=== PATIENT | male | born 2000 | race Caucasian/White ===

== ENCOUNTER 2020-04-13 08:46 | Emergency (ER) | payer OTHER, SELFPAY ==
[2020-04-13 09:31] VITALS: BP 129/88; PULSE 88; RESP 18; TEMP 37.4; O2SAT 96; BMI 23.7
--- NOTE | 2020-04-13 09:42 | XR_ITS ---
EXAMINATION: XR FINGER, RIGHT CLINICAL INFORMATION: Patient unable to straighten finger. The fifth finger injury. COMPARISON: None TECHNIQUE: 3 views of the right fifth. FINDINGS: There is acute severe flexion deformity PIP and mild flexion deformity DIP joint fifth digit without any visible subluxation, fracture. The soft tissues are normal. XR/XR finger RT min 2V IMPRESSION: Excessive deformities of PIP and DIP joints of digits likely spasm. No bony abnormality seen. Especially there is no subluxation visualized
[2020-04-13] MEDS: Lidocaine HCl 1 % MPF 5 ML VIAL SUBCUT (09:57)
--- NOTE | 2020-04-13 10:16 | ED.EXTPRO ---
HPI - Extremity Problem General Chief complaint: Extremity Injury, Upper Stated complaint: laceration rt hand Time Seen by Provider: 04/13/20 09:42 Source: patient Mode of arrival: ambulatory Limitations: no limitations History of Present Illness HPI Narrative: This is otherwise healthy 20-year-old male who denies any significant past medical history presents ambulatory via triage from work where he reports he was moving a Pallet of glass and the pry bar became loosened suddenly moved and scraping like motion car across the dorsum right 5th digit causing laceration. States unable to open his finger since. States he had bleeding but control with dressing. Unsure of his last tetanus vaccination. No other injury. Onset (ago): minute(s) Pain Consistency: constant Location: right (Fifth digit) Quality: aching Radiation: none Relieving factors: immobilization Exacerbating factors: range of motion Associated symptoms: denies other symptoms Related Data Previous Rx's Medication Instructions Recorded amoxicillin-pot clavulanate 1 tab PO Q12H 10 Days #20 tab 04/13/20 [Augmentin] ibuprofen 800 mg PO Q8H PRN #30 tab 04/13/20 Allergies Allergy/AdvReac Type Severity Reaction Status Date / Time No Known Allergies Allergy Verified 04/13/20 09:33 [facility] Past Medical History Medical History (Updated 04/13/20 @ 11:34 by Florentino Menjivar NP) No known health problems Social History Social History Advance Directives: No Advance Directives Information Provided: No Physical Exam Vital Signs: Vital Signs: Last Vital Signs Temp 99.3 F 04/13/20 09:31 Pulse 88 04/13/20 09:31 Resp 18 04/13/20 09:31 BP 129/88 04/13/20 09:31 Pulse Ox 96 04/13/20 09:31 Body Mass Index 23.7 Reviewed Const: General: cooperative and healthy appearing; No acute distress or intoxicated appearing Nutritional Appearance: average body habitus Orientation/consciousness: patient oriented x3 Chest: Chest palpation & inspection: normal inspection of the chest Resp: Effort & Inspection: normal respiratory effort Auscultation: clear to auscultation bilaterally Cardio: Jugular venous distension: no JVD Rate: regular rate Rhythm: regular rhythm Heart sounds: S1 normal heart sound present and S2 normal heart sound present Skin: General skin exam: no rashes or lesions noted Neuro: General: patient oriented x3 Extrem: Other: In a flexed position. States unable to extend by himself. General: Yes normal to inspection Course Course Course Narrative: Interview 20-year-old with laceration to the proximal 5th digit right hand at work from crowbar resulting in laceration to the extensor tendon, x-rays without bony involvement. Wound extensively cleaned without evidence of foreign body. Case discussed with orthopedics Zoraida who spoke to Dr. Tovar recommendation for loosely suturing and placing and splint in extended position and follow-up on Thursday for evaluation and possible instrumentation in office. Patient was given tetanus vaccination. Again wound was extensive leak clean without evidence of foreign body were empirically placed on antibiotics. Will call office after discharge to confirm his appointment. The importance of follow-up was reviewed with him and he verbalized understanding. Procedures Laceration Laceration 1: Site: hand (Fifth digit) Side (If applicable): right Description: linear and clean Depth: simple, single layer Local Anesthetic: lidocaine 1% Amount of anesthesia used (mL): 4 Skin layer closed with: nylon Size (cm): 4-0 Number of sutures: 2 Technique: simple, interrupted MDM - Extremity (Nontraumatic) Imaging Data Right hand x-ray: Radiologist's impression: [address] [address] XRay Report Signed Patient: Dandre DrewMR#: [id number] : 2000Acct:[id number] Age/Sex: 20 / MADM Date: 04/13/20 Loc: HO.ED Attending Dr: Ordering Physician: Florentino Menjivar NP Date of Service: 04/13/20 Procedure(s): XR finger RT min 2V Accession Number(s): [id number] cc: Florentino Menjivar [employer]OR~ EXAMINATION: XR FINGER, RIGHT CLINICAL INFORMATION: Patient unable to straighten finger. The fifth finger injury. COMPARISON: None TECHNIQUE: 3 views of the right fifth. FINDINGS: There is acute severe flexion deformity PIP and mild flexion deformity DIP joint fifth digit without any visible subluxation, fracture. The soft tissues are normal. XR/XR finger RT min 2V IMPRESSION: Excessive deformities of PIP and DIP joints of digits likely spasm. No bony abnormality seen. Especially there is no subluxation visualized Dictated By:CONSTANTINO FAJARDO MD Signed By:<Electronically signed by CONSTANTINO FAJARDO MD in OV>04/13/20 1008 DD/ 0942 TD/TT: Solutions Developer: MACY Discharge Plan Discharge Clinical Impression: Extensor tendon laceration of finger with open wound Qualifiers: Encounter type: initial encounter Qualified Code(s): S56.429A - Laceration of extensor muscle, fascia and tendon of unspecified finger at forearm level, initial encounter Patient Disposition: Home, Self-Care Instructions: Finger Laceration (ED), Tendon Laceration (ED) Additional Instructions: Today you were evaluated for the laceration to the right 5th finger. The x-ray did not show any evidence of fracture Leave yrs splint on until you follow-up with orthopedic hand surgeon. You have a tendon laceration and this will need repair by the hand surgeon as I have discussed with you. Please follow-up with Dr. Tovar our orthopedic hand surgeon on Thursday or Thursday Ibuprofen for pain or discomfort Take antibiotics to prevent any infection It is very important for you to follow-up with orthopedic hand surgeon otherwise you may have permanent deformity in the finger, increased risk infection and poor healing. Return to emergency room if any concerns or worsening symptoms otherwise follow-up as instructed Thank you Prescriptions: New ibuprofen 800 mg tablet 800 mg PO Q8H PRN (Reason: pain) Qty: 30 RF: 0 amoxicillin-pot clavulanate [Augmentin] 875-125 mg tablet 1 tab PO Q12H 10 Days Qty: 20 RF: 0 Interventions: ED Discharge Assessment Last Done: 04/13/20 11:53 Discharge Date/Time: 04/13/20 11:54
== END 2020-04-13 11:54 | disposition home or self-care (01) ==
PROVIDERS: Emergency Provider Emergency Medicine; PCP Pediatrics
DX: S56.427A Laceration of extensor muscle, fascia and tendon of right little finger at forearm level, initial encounter (principal); W27.8XXA Contact with other nonpowered hand tool, initial encounter; Y93.9 Activity, unspecified; Y92.9 Unspecified place or not applicable; Y99.0 Civilian activity done for income or pay
CPT/HCPCS: 12002; 29130; 73140; 90471; 90715; 99283; 99284

== ENCOUNTER → 2020-04-18 08:42 | Outpatient (BNVA) | payer OTHER, SELFPAY | PROVIDERS: PCP Pediatrics; Visit Provider Orthopaedic Surgery | DX: S56.429A Laceration of extensor muscle, fascia and tendon of unspecified finger at forearm level, initial encounter (principal); S61.209A Unspecified open wound of unspecified finger without damage to nail, initial encounter | CPT/HCPCS: 99202 ==

== ENCOUNTER 2020-04-19 08:08 | Day surgery (SDC) | payer OTHER, SELFPAY ==
[2020-04-18 12:45] VITALS: BMI 23.7
--- NOTE | 2020-04-18 13:45 | P.CONAN_ITS ---
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 Meds Allergies Allergy/AdvReac Type Severity Reaction Status Date / Time No Known Allergies Allergy Verified 04/18/20 08:44 Exam Exam Date and Time: April 18, 2020 1345 Height,Weight and Vital Signs: Height 6 ft 1 in Weight 81.647 kg Assessment and Plan Assessment Anesthesia Assessment: Chart Reviewed Documented by User: Carrol Juarez 04/19/20 12:31 [facility] Past Medical History Medical History No known health problems Social History Social History Smoking Status: Never smoker Second Hand Smoke Exposure: No Use of substances other than those prescribed or required for medical reasons: Yes Substance Use Type: Marijuana Advance Directives: No Advance Directives Information Provided: No Advance Directives on File: No Current occupational status: employed 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
[2020-04-19] VITALS (8 sets, daily range): BP systolic 114–136; BP diastolic 58–94; PULSE 52–67; RESP 16; TEMP 36.1–36.5; O2SAT 97–100
[2020-04-19] MEDS: Lactated Ringers 1,000 ML 100 ML IVCONT (08:41)
[2020-04-19] MEDS: ceFAZolin Sodium/Dextrose,Iso 2 GM/50 ML PIGGYBACK IV (08:41)
--- NOTE | 2020-04-19 10:12 | MHC.SHP ---
Pre-Procedural Eval Section B Chief Complaint: laceration of extensor muscle Allergies: Allergies Allergy/AdvReac Type Severity Reaction Status Date / Time No Known Allergies Allergy Verified 04/18/20 08:44 Plan I have reviewed the history and physical and performed a pertinent physical examination on my patient. No changes have occurred unless specified.
--- NOTE | 2020-04-19 13:44 | W.PM.OPN ---
Operative Note Operative Note Date of Service: 04/19/20 Narrative: Operative Note Narrative: Preop diagnosis: 1. Right small finger laceration with open PIP joint 2. Right small finger extensor tendon laceration 3. Right ulnar nerve block the wrist Postop diagnosis: Same Procedure: Same Surgeon: Liane Tovar MD Anesthesia: Mac plus regional block Findings: Wound extending down to bone on the distal dorsal aspect of the proximal phalanx and also into the PIP joint. The wound was clean with no purulence or gross debris. Was a partial extensor tendon injury involving more than 50% of the central slip and also the ulnar lateral band. Implants: None Tourniquet time: 24 minutes EBL: 5.0 ml Specimen: Drains: None Complications: None Disposition: Brought to the recovery room in stable condition Plan: Follow-up in 10-14 days for wound check, suture removal and placement short-arm finger spica cast with the small and ring fingers about 70-80 degrees of flexion at the MCP joint and extension at the PIP joint until 6 weeks postop. Indications: The patient is a 19 year old man with laceration over dorsal aspect of the right small finger, involving the extensor tendon mechanism . The risks and benefits of operative treatment, including but not limited to risk of damage to blood vessels, nerves, tendons, infection, recurrence, persistent pain or numbness, incomplete resolution of preoperative symptoms, or need for further surgery were discussed with the patient and they wished to proceed with surgery. Procedure: Once consent was obtained patient was brought back to the operating suite and placed in the operating table in a supine position. A regional block was attempted by the anesthesia team, but he was unable to tolerate. Perioperative antibiotics and anesthesia was administered by the anesthesia team. A tourniquet was applied to the proximal aspect of the right upper extremity and the limb was prepped and draped in a standard surgical fashion. The limb was elevated exsanguinated with Esmarch bandage and the tourniquet inflated to 250 mm of mercury for a total tourniquet time of 24 minutes. I 1st performed a right ulnar nerve block by infiltrating about the ulnar nerve with the wrist with some 0.5% plain Marcaine, for postop pain control. The sutures were. He was found to have a crescent-shaped laceration measuring approximately 2 cm over the dorsal distal aspect of the proximal phalanx of his right small finger extending to the ulnar aspect of the PIP joint. This wound was sharply debrided using a 15. Blade and some iris scissors. Was evaluated was found to extend the dorsal ulnar aspect of distal aspect of the proximal phalanx and into the PIP joint. This area was debrided using a small rongeur in a small curette was clean and without purulence or gross debris. The PIP joint and the were copiously irrigated with normal saline. Once satisfied with our debridement I then repaired the extensor mechanism, which involved greater than 50% of the central slip and also the ulnar lateral band. Were repaired some 3-0 Ethibond suture material. I was satisfied with our extensor tendon repair. At this point the tourniquet was deflated and hemostasis obtained with a brief period of local pressure and bipolar electrocautery. The wound was copiously irrigated with normal saline. The skin edges were reapproximated with 5-0 Prolene suture. A sterile dressing and a short-arm splint was applied extending to the tips of the small and ring fingers. The patient appears to have tolerated the procedure well and with no complications. All digits were well vascularized conclusion of the case.
--- NOTE | 2020-04-19 14:47 | HO.POSTANES ---
Post Anesthesia Evaluation Post Anesthesia Evaluation Vital Signs: Vital Signs Temp Pulse Resp BP Pulse Ox 04/19/20 14:19 52 16 117/60 98 04/19/20 14:02 53 16 114/58 L 100 04/19/20 13:57 53 16 117/59 L 100 04/19/20 13:52 54 16 115/64 100 04/19/20 13:47 97.7 F 60 16 120/62 100 Anesthesia: General Mental Status: Awake Pain Control: Satisfactory Nausea/Vomiting: None Hydration: Adequate Anesthesia-Related Issues: No Anes. Related Issues
== END 2020-04-19 16:01 | disposition home or self-care (01) ==
PROVIDERS: PCP Pediatrics; Visit Provider Orthopaedic Surgery
PROC: (CPT 26418; principal; 2020-04-19 10:40)
DX: S66.326A Laceration of extensor muscle, fascia and tendon of right little finger at wrist and hand level, initial encounter (principal); S61.216A Laceration without foreign body of right little finger without damage to nail, initial encounter; W25.XXXA Contact with sharp glass, initial encounter; Y93.9 Activity, unspecified; Y92.69 Other specified industrial and construction area as the place of occurrence of the external cause; Y99.8 Other external cause status
CPT/HCPCS: 26418 ×2; J0690; J1100; J1885; J2250; J2370; J2405; J3010

== ENCOUNTER → 2020-05-02 09:38 | Outpatient (BNVA) | payer OTHER, SELFPAY | PROVIDERS: PCP Pediatrics; Visit Provider Orthopaedic Surgery | DX: S56.429A Laceration of extensor muscle, fascia and tendon of unspecified finger at forearm level, initial encounter (principal); S61.209A Unspecified open wound of unspecified finger without damage to nail, initial encounter | CPT/HCPCS: 99212 ==

== ENCOUNTER → 2020-05-09 09:42 | Outpatient (BNVA) | payer OTHER, SELFPAY | PROVIDERS: Visit Provider Orthopaedic Surgery ==

== ENCOUNTER → 2020-05-30 10:05 | Outpatient (BNVA) | payer OTHER, SELFPAY | PROVIDERS: Visit Provider Orthopaedic Surgery | DX: S56.429A Laceration of extensor muscle, fascia and tendon of unspecified finger at forearm level, initial encounter (principal); S61.209A Unspecified open wound of unspecified finger without damage to nail, initial encounter | CPT/HCPCS: 99212 ==

== ENCOUNTER → 2020-06-27 10:42 | Outpatient (BNVA) | payer OTHER, SELFPAY | PROVIDERS: Visit Provider Orthopaedic Surgery | DX: S56.429D Laceration of extensor muscle, fascia and tendon of unspecified finger at forearm level, subsequent encounter (principal); S61.209D Unspecified open wound of unspecified finger without damage to nail, subsequent encounter | CPT/HCPCS: 99212 ==